=== PATIENT | male | born 1990 | race Caucasian/White ===

== ENCOUNTER 2025-05-29 00:50 | Emergency (ER) | payer OTHER ==
[~2025-05-29] VITALS: Ht 185.4 cm; Wt 88.5 kg
[2025-05-29] MEDS ORDERED: EPIN0.3P3 IM (01:31)
[2025-05-29] MEDS ORDERED: PRED20TA PO (01:31)
[2025-05-29] MEDS ORDERED: FAMO20TA80 PO (01:31)
[2025-05-29] MEDS ORDERED: dexaMETHasone SOD PHOSPHATE 1 ML ONE (01:32)
[2025-05-29] MEDS ORDERED: FAMOTIDINE (20 MG) 20 MG TABLET ONE (01:33)
[2025-05-29] MEDS: dexaMETHasone SOD PHOSPHATE 10 MG/ML VIAL IM ONE (01:47)
[2025-05-29] MEDS: FAMOTIDINE (20 MG) 20 MG TABLET PO ONE (01:48)
[2025-05-29 04:28] VITALS: BP 135/84; TEMP 97.4; O2SAT 96
== END 2025-05-29 04:28 | disposition home or self-care (01) ==
LOC: ER 00:56
DX: T78.49XA Other allergy, initial encounter (principal); T78.1XXA Other adverse food reactions, not elsewhere classified, initial encounter; K21.9 Gastro-esophageal reflux disease without esophagitis; X58.XXXA Exposure to other specified factors, initial encounter; Z60.2 Problems related to living alone
CPT/HCPCS: 99283; 96372; J1100